=== PATIENT | male | born 1945 | race Caucasian/White ===

== ENCOUNTER 2018-07-21 08:29 | Inpatient (IN) | payer MEDICARE, OTHER ==
[~2018-07-21] VITALS: Ht 188 cm; Wt 115.1 kg
[2018-07-21] MEDS ORDERED: normal saline 1000ML IV soln IVB ONE (09:00)
[2018-07-21 09:08] LABS: BASOPHILS % (AUTO) 0.5 % (0-1); EOSINOPHILS # (AUTO) 0.1 X10'3 (0-0.9); EOSINOPHILS % (AUTO) 0.9 % (0-6); HEMATOCRIT 38.5 % (42.0-52.0); HEMOGLOBIN 13.1 g/dl (14.0-17.9); LYMPHOCYTES # (AUTO) 1.4 X10'3 (1.1-4.8); LYMPHOCYTES % (AUTO) 21.1 % (21-51); MEAN CORPUSCULAR HEMOGLOBIN 31.6 PG (27.0-31.0); MEAN CORPUSCULAR HGB CONC 34.1 % (33.0-36.5); MEAN CORPUSCULAR VOLUME 92.7 FL (78-98); MEAN PLATELET VOLUME 7.3 FL (7.4-10.4); MONOCYTES # (AUTO) 0.5 X10'3 (0-0.9); MONOCYTES % (AUTO) 7.1 % (2-12); NEUTROPHILS # (AUTO) 4.8 X10'3 (1.8-7.7); NEUTROPHILS % (AUTO) 70.4 % (42-75); PLATELET COUNT 226 X10'3 (140-440); RED BLOOD COUNT 4.16 X10'6 (4.70-6.10); RED CELL DISTRIBUTION WIDTH 13.5 % (11.5-14.5); WHITE BLOOD COUNT 6.8 X10'3 (4.5-11.0)
[2018-07-21 09:21] LABS: ALANINE AMINOTRANSFERASE 56 U/L (12-78); ALBUMIN 3.4 G/DL (3.4-5.0); ALBUMIN/GLOBULIN RATIO 1.1 (1.1-1.5); ALKALINE PHOSPHATASE 66 IU/L (46-116); ANION GAP 11 (8-16); ASPARTATE AMINO TRANSFERASE 39 U/L (10-37); BILIRUBIN,TOTAL 0.7 MG/DL (0.1-1.0); BLOOD UREA NITROGEN 16 MG/DL (7-18); BUN/CREATININE RATIO 18.4 (5.4-32.0); CALCIUM 8.2 MG/DL (8.5-10.1); CHLORIDE 108 MMOL/L (99-107); CREATININE 0.87 MG/DL (0.60-1.10); GLUCOSE 107 MG/DL (70-104); SODIUM 142 MMOL/L (135-145); TOTAL CARBON DIOXIDE 22.8 MMOL/L (24-32); TOTAL PROTEIN 6.5 G/DL (6.4-8.2); eGFR 87 ML/MIN
--- NOTE | 2018-07-21 09:26 | NUR ---
Ultrasound at bedside
[2018-07-21 09:36] LABS: LIPASE 8875 U/L (73-393)
--- NOTE | 2018-07-21 09:40 | NUR ---
introduced self to patient
[2018-07-21 09:53] LABS: INR 1.1 INR; PARTIAL THROMBOPLASTIN TIME 26 SECONDS (22-32); PROTHROMBIN TIME 10.7 SECONDS (9.0-12.0)
[2018-07-21] MEDS ORDERED: LORazepam 2 mg/ml vial IV ONE (10:05)
[2018-07-21] MEDS ORDERED: ASPI-1264 PO (10:11)
[2018-07-21] MEDS ORDERED: LISI-600 PO (10:11)
[2018-07-21] MEDS ORDERED: amlodipine PO (10:11)
[2018-07-21] MEDS ORDERED: TETR-47 OP (10:11)
[2018-07-21] MEDS ORDERED: morphine 4 MG/ML inj SYRINge IV PRN (11:05)
[2018-07-21] MEDS ORDERED: potassium Cl 40MEQ/NS 500ml 500 ML IV PRN ×2 (11:05)
[2018-07-21] MEDS ORDERED: potassium Cl 20 mEq SR tablet PO PRN ×2 (11:05)
[2018-07-21] MEDS ORDERED: ondansetron/PF 4mg/2ml inj IV PRN (11:05)
[2018-07-21] MEDS ORDERED: acetaminophen 650mg rectal suppository RC PRN (11:05)
[2018-07-21] MEDS ORDERED: magnesium 4gm in 100ml NS 100 ML IV PRN (11:05)
[2018-07-21] MEDS ORDERED: magnesium Cl slow-release 64mg tablet PO PRN (11:05)
--- NOTE | 2018-07-21 11:40 | NUR ---
PT TO MRI
--- NOTE | 2018-07-21 12:41 | NUR ---
Received report from Ren RN in ED regarding this patient, had opportunity to ask questions and assume care. patient to arrive to floor within the hour.
[2018-07-21 13:00] VITALS: BP 120/72
--- NOTE | 2018-07-21 13:05 | NUR ---
patient arrived to the floor in stable condition. respirations 18, O2 saturation 96 on room air, BP 120/72 and HR 69. Afebrile. Will continue to monitor
[2018-07-21] MEDS: normal saline 1000ml 1,000 ML IV SCH ×2 (14:32→21:18)
[2018-07-21] MEDS: morphine 4 MG/ML inj SYRINge IV PRN ×2 (14:38→21:19)
[2018-07-21 18:00] VITALS: BP 135/79
--- NOTE | 2018-07-21 18:20 | NUR ---
Paged Dr. Pandey after discussing patient's change of code status to DNR, patient states he does not want to be DNR, but would like "some measures." Notified Dr. Pandey of patient's wishes to change code status. awaiting further orders.
--- NOTE | 2018-07-21 18:41 | NUR ---
Patient in room [facility]. I have received report from Juancarlos NIÑO and had the opportunity to ask questions and assume patient care. Was introduced to the pt. no signs of distress. was going to put the DNR band as ordered. However, pt still had questions about his code status and what it entails. educated pt and then Juancarlos RN paged Dr. Pandey. will continue to monitor.
--- NOTE | 2018-07-21 18:41 | NUR ---
Problems reprioritized. Patient report given, questions answered & plan of care reviewed with SALINAS Lazo.
--- NOTE | 2018-07-21 19:06 | NUR ---
Paged Dr. Pandey "[address] 73. pancreatitis, cholelithiasis. wants to address code status and has questions about code status. Surg [id number] Violet NIÑO" Dr. Pandey called and said "she is way to busy right now and we can change the status to full code. we will address his status tomorrow morning and that he seems to be fine right now." Will continue to monitor.
[2018-07-22] VITALS: BP 104/71
[2018-07-22] MEDS: normal saline 1000ml 1,000 ML IV SCH (05:09)
[2018-07-22 05:25] LABS: ALBUMIN 3.1 G/DL (3.4-5.0); ANION GAP 8 (8-16); BLOOD UREA NITROGEN 9 MG/DL (7-18); BUN/CREATININE RATIO 10.7 (5.4-32.0); CHLORIDE 109 MMOL/L (99-107); CREATININE 0.84 MG/DL (0.60-1.10); GLUCOSE 99 MG/DL (70-104); LIPASE 1145 U/L (73-393); MAGNESIUM 1.7 MG/DL (1.5-2.4); POTASSIUM 3.9 MMOL/L (3.5-5.1); SODIUM 143 MMOL/L (135-145); eGFR 90 ML/MIN
[2018-07-22 05:38] LABS: BASOPHILS % (AUTO) 0.3 % (0-1); EOSINOPHILS # (AUTO) 0.1 X10'3 (0-0.9); EOSINOPHILS % (AUTO) 1.6 % (0-6); HEMATOCRIT 36.7 % (42.0-52.0); HEMOGLOBIN 12.1 g/dl (14.0-17.9); LYMPHOCYTES # (AUTO) 1.3 X10'3 (1.1-4.8); LYMPHOCYTES % (AUTO) 22.1 % (21-51); MEAN CORPUSCULAR HEMOGLOBIN 30.6 PG (27.0-31.0); MEAN CORPUSCULAR VOLUME 92.7 FL (78-98); MEAN PLATELET VOLUME 7.1 FL (7.4-10.4); MONOCYTES # (AUTO) 0.4 X10'3 (0-0.9); MONOCYTES % (AUTO) 6.8 % (2-12); NEUTROPHILS # (AUTO) 3.9 X10'3 (1.8-7.7); NEUTROPHILS % (AUTO) 69.2 % (42-75); PLATELET COUNT 235 X10'3 (140-440); RED BLOOD COUNT 3.96 X10'6 (4.70-6.10); RED CELL DISTRIBUTION WIDTH 13.9 % (11.5-14.5); WHITE BLOOD COUNT 5.7 X10'3 (4.5-11.0)
--- NOTE | 2018-07-22 06:40 | NUR ---
Problems reprioritized. Patient report given, questions answered & plan of care reviewed with Juancarlos RN.
--- NOTE | 2018-07-22 06:45 | NUR ---
Patient in room [facility]. I have received report from SALINAS Lazo and had the opportunity to ask questions and assume patient care.
[2018-07-22 08:00] VITALS: BP 122/80
[2018-07-22] MEDS ORDERED: aspirin 325mg tablet PO SCH (08:00)
[2018-07-22] MEDS: K and/or MAG REPLACEMENT MC SCH (08:00)
[2018-07-22] MEDS: lisinopril 20mg tablet PO SCH (08:54)
[2018-07-22 11:00] VITALS: BP 116/73
[2018-07-22] MEDS ORDERED: LORazepam 2 mg/ml vial IV PRN (13:45)
[2018-07-22] MEDS: folic acid 1mg tablet PO SCH (14:32)
[2018-07-22] MEDS ORDERED: naphazoline/pheniramine eye 1 DROP BOTTLE EACHEYE PRN (17:35)
[2018-07-22] MEDS: morphine 4 MG/ML inj SYRINge IV PRN (17:37)
--- NOTE | 2018-07-22 18:23 | NUR ---
Problems reprioritized. Patient report given, questions answered & plan of care reviewed with Carolina Figueroa RN.
--- NOTE | 2018-07-22 18:30 | NUR ---
Patient in room [facility]. I have received report from CHALO NIÑO and had the opportunity to ask questions and assume patient care.
[2018-07-22 20:00] VITALS: BP 132/75
[2018-07-22] MEDS: thiamine 100mg tablet PO SCH (20:02)
[2018-07-23] VITALS (24 sets, daily range): BP systolic 120–169; BP diastolic 55–101
[2018-07-23] MEDS: Potassium Cl inj 20 MEQ in normal saline 1000ml 1,000 ML IV SCH ×2 (05:49→17:01)
--- NOTE | 2018-07-23 06:30 | NUR ---
Problems reprioritized. Patient report given, questions answered & plan of care reviewed with ESSIE NIÑO.
[2018-07-23] MEDS: folic acid 1mg tablet PO SCH (07:13)
[2018-07-23] MEDS: thiamine 100mg tablet PO SCH ×2 (07:13→19:57)
[2018-07-23] MEDS: lisinopril 20mg tablet PO SCH (07:13)
--- NOTE | 2018-07-23 07:18 | NUR ---
Patient in room [facility]. I have received report from Carolina Figueroa RN and had the opportunity to ask questions and assume patient care.
[2018-07-23] MEDS: K and/or MAG REPLACEMENT MC SCH (08:00)
[2018-07-23 08:04] LABS: BASOPHILS % (AUTO) 0.8 % (0-1); EOSINOPHILS # (AUTO) 0.1 X10'3 (0-0.9); EOSINOPHILS % (AUTO) 1.8 % (0-6); HEMATOCRIT 37.7 % (42.0-52.0); HEMOGLOBIN 12.8 g/dl (14.0-17.9); LYMPHOCYTES # (AUTO) 1.5 X10'3 (1.1-4.8); LYMPHOCYTES % (AUTO) 27.6 % (21-51); MEAN CORPUSCULAR HEMOGLOBIN 31.1 PG (27.0-31.0); MEAN CORPUSCULAR HGB CONC 33.9 % (33.0-36.5); MEAN CORPUSCULAR VOLUME 91.8 FL (78-98); MONOCYTES # (AUTO) 0.4 X10'3 (0-0.9); MONOCYTES % (AUTO) 7.4 % (2-12); NEUTROPHILS # (AUTO) 3.3 X10'3 (1.8-7.7); NEUTROPHILS % (AUTO) 62.4 % (42-75); PLATELET COUNT 223 X10'3 (140-440); RED CELL DISTRIBUTION WIDTH 13.9 % (11.5-14.5); WHITE BLOOD COUNT 5.3 X10'3 (4.5-11.0)
[2018-07-23 08:23] LABS: ALANINE AMINOTRANSFERASE 35 U/L (12-78); ALBUMIN 3.1 G/DL (3.4-5.0); ALKALINE PHOSPHATASE 47 IU/L (46-116); ANION GAP 8 (8-16); BILIRUBIN,TOTAL 1.2 MG/DL (0.1-1.0); BLOOD UREA NITROGEN 7 MG/DL (7-18); BUN/CREATININE RATIO 8.3 (5.4-32.0); CALCIUM 8.4 MG/DL (8.5-10.1); CHLORIDE 107 MMOL/L (99-107); CREATININE 0.84 MG/DL (0.60-1.10); GLUCOSE 105 MG/DL (70-104); LIPASE 512 U/L (73-393); MAGNESIUM 1.8 MG/DL (1.5-2.4); POTASSIUM 3.8 MMOL/L (3.5-5.1); SODIUM 141 MMOL/L (135-145); TOTAL PROTEIN 6.1 G/DL (6.4-8.2); eGFR 90 ML/MIN
[2018-07-23 08:32] LABS: ASPARTATE AMINO TRANSFERASE 21 U/L (10-37)
[2018-07-23] MEDS ORDERED: BUPIVAcaine/PF 2.5mg/ml (0.25%) 10ml vial ONE (08:43)
[2018-07-23] MEDS ORDERED: ceFAZolin 1000mg inj ONE (08:43)
--- NOTE | 2018-07-23 08:57 | NUR ---
SALINAS Alcantar called for patient report. Pt left floor in bed with one staff for surgery.
[2018-07-23] MEDS ORDERED: fentaNYL /PF 50mcg/ml 5ml ampule ONE (09:19)
[2018-07-23] MEDS ORDERED: succinylcholine 20mg/ml inj IV ONE (09:38)
[2018-07-23] MEDS ORDERED: rocuronium 10mg/ml inj IV ONE (09:38)
[2018-07-23] MEDS ORDERED: propofol inj 20 ML IV ONE (09:38)
[2018-07-23] MEDS ORDERED: dexamethasone sod phosphate 4mg/ml inj. ONE (09:38)
[2018-07-23] MEDS ORDERED: LIDOcaine 2% (20mg/ml) 5ml vial ONE (09:38)
[2018-07-23] MEDS ORDERED: ceFOXitin 1000 MG inj ONE ×2 (09:52)
--- NOTE | 2018-07-23 10:29 | NUR ---
Received from OR via , accompanied by Anesthesiologist DR AVILA and report given by Anesthesiolgist. PT OPENS EYES TO VOICE, NEEDS REORINETATION, SKIN WARM AND PINK, VSS, ABD WITH 4 LAP SITES BA'S CD, SCDS, LEFT HAND 20G WITH LR 100ML/HR, DR AVILA MEDICATED PT WITH FENTANYL FOR PAIN.
[2018-07-23] MEDS ORDERED: ringers solution, lacted 1,000 ML IV SCH (10:34)
[2018-07-23] MEDS ORDERED: ondansetron/PF 4mg/2ml inj IV PRN (10:35)
[2018-07-23] MEDS ORDERED: HYDROmorphone inj. 0.5 MG/0.5 ML DISP.SYRIN IV PRN ×2 (10:35→14:30)
[2018-07-23] MEDS ORDERED: morphine 2 MG/ML inj. syringe ONE (10:39)
[2018-07-23] MEDS ORDERED: neostigmine methylsulfate 1 MG/ML 10ml vial ONE (10:46)
[2018-07-23] MEDS ORDERED: glycopyrrolate 0.2mg/ml inj ONE (10:46)
[2018-07-23] MEDS ORDERED: ondansetron/PF 4mg/2ml inj ONE (10:46)
[2018-07-23] MEDS: morphine 4 MG/ML inj SYRINge IV PRN ×3 (10:55→11:24)
[2018-07-23] MEDS: HYDROmorphone inj. 0.5 MG/0.5 ML DISP.SYRIN IV PRN ×2 (11:11→11:33)
--- NOTE | 2018-07-23 11:59 | NUR ---
Report called to receiving nurse. Transferred via BED Belongings . Special Issues communicated to receiving nurse ESSIE NIÑO. PT IS AWAKE, ALERT, ABLE TO SIT EOB INDEP'LY, SKIN WARM AND PINK, ABD SOFT, 4 PORT SITES WITH CD BA'S, SCDS, PIV LEFT HAND PATENT, NO TELE ORDERED, PAIN HAS DECREASED TO A 5/10, BP DECREASED AND ABILITY TO [place] O2 ABOVE 93% WITH NC HAS BEEN ACHIEVED, PT HAS MET DISCHARGE CRITERIA. COOK STATION PLACED PATIENT ON 02 IN ROOM, PLUGGED IN SCD'S, AND ANSWERED QUESTIONS FROM RECEIVING NURSE.
[2018-07-23] MEDS: HYDROmorphone 1 mg/ml syringe IV PRN (15:34)
--- NOTE | 2018-07-23 18:07 | NUR ---
Patient in room [facility]. I have received report from Claudette NIÑO and had the opportunity to ask questions and assume patient care. Pt sitting up in bed eating dinner and watching tv on 3L O2. No signs of distress, will continue to monitor.
--- NOTE | 2018-07-23 18:28 | NUR ---
Problems reprioritized. Patient report given, questions answered & plan of care reviewed with Gwendolyn NIÑO.
[2018-07-23] MEDS: docusate sod 100mg capsule PO SCH (19:58)
[2018-07-24] VITALS: BP 139/81
[2018-07-24] MEDS: HYDROmorphone 1 mg/ml syringe IV PRN ×4 (02:12→19:18)
[2018-07-24 06:24] LABS: BASOPHILS % (AUTO) 0.3 % (0-1); EOSINOPHILS # (AUTO) 0.1 X10'3 (0-0.9); EOSINOPHILS % (AUTO) 0.9 % (0-6); HEMATOCRIT 40.9 % (42.0-52.0); HEMOGLOBIN 13.7 g/dl (14.0-17.9); LYMPHOCYTES # (AUTO) 1.1 X10'3 (1.1-4.8); LYMPHOCYTES % (AUTO) 12.4 % (21-51); MEAN CORPUSCULAR HEMOGLOBIN 30.9 PG (27.0-31.0); MEAN CORPUSCULAR HGB CONC 33.5 % (33.0-36.5); MEAN CORPUSCULAR VOLUME 92.2 FL (78-98); MEAN PLATELET VOLUME 7.3 FL (7.4-10.4); MONOCYTES # (AUTO) 0.3 X10'3 (0-0.9); NEUTROPHILS # (AUTO) 7.3 X10'3 (1.8-7.7); NEUTROPHILS % (AUTO) 83.4 % (42-75); PLATELET COUNT 286 X10'3 (140-440); RED BLOOD COUNT 4.43 X10'6 (4.70-6.10); RED CELL DISTRIBUTION WIDTH 13.7 % (11.5-14.5); WHITE BLOOD COUNT 8.7 X10'3 (4.5-11.0)
--- NOTE | 2018-07-24 06:36 | NUR ---
Problems reprioritized. Patient report given, questions answered & plan of care reviewed with Prachi NIÑO. Pt is sitting up in bed watching tv with 3L O2 via NC. Pt has no signs of distress.
[2018-07-24 06:40] LABS: ALANINE AMINOTRANSFERASE 57 U/L (12-78); ALBUMIN 3.5 G/DL (3.4-5.0); ALBUMIN/GLOBULIN RATIO 0.9 (1.1-1.5); ALKALINE PHOSPHATASE 50 IU/L (46-116); ANION GAP 10 (8-16); ASPARTATE AMINO TRANSFERASE 48 U/L (10-37); BILIRUBIN,TOTAL 1.1 MG/DL (0.1-1.0); BLOOD UREA NITROGEN 6 MG/DL (7-18); BUN/CREATININE RATIO 5.7 (5.4-32.0); CALCIUM 8.8 MG/DL (8.5-10.1); CHLORIDE 102 MMOL/L (99-107); CREATININE 1.05 MG/DL (0.60-1.10); GLUCOSE 127 MG/DL (70-104); MAGNESIUM 1.7 MG/DL (1.5-2.4); POTASSIUM 4.1 MMOL/L (3.5-5.1); SODIUM 138 MMOL/L (135-145); TOTAL CARBON DIOXIDE 26.1 MMOL/L (24-32); TOTAL PROTEIN 7.3 G/DL (6.4-8.2); eGFR 70 ML/MIN
[2018-07-24 07:00] VITALS: BP 143/87
[2018-07-24] MEDS: K and/or MAG REPLACEMENT MC SCH (08:00)
[2018-07-24] MEDS: docusate sod 100mg capsule PO SCH ×2 (08:59→19:18)
[2018-07-24] MEDS: thiamine 100mg tablet PO SCH ×2 (08:59→19:18)
[2018-07-24] MEDS: folic acid 1mg tablet PO SCH (09:00)
[2018-07-24] MEDS: lisinopril 20mg tablet PO SCH (09:00)
[2018-07-24] MEDS: enoxaparin 40mg/0.4ml syringe SUBCUT SCH (09:01)
[2018-07-24] MEDS: Potassium Cl inj 20 MEQ in normal saline 1000ml 1,000 ML IV SCH ×2 (10:15→21:47)
[2018-07-24 12:00] VITALS: BP 145/81
--- NOTE | 2018-07-24 18:54 | NUR ---
Patient in room [facility]. I have received report from Prachi NIÑO and had the opportunity to ask questions and assume patient care. Pt was sitting up in bed with tv on going through his bag of belongings. O2 via NC @ 3L, no signs of distress. Will continue to monitor.
[2018-07-24 19:00] VITALS: BP 137/92
[2018-07-25] VITALS: BP 131/79
[2018-07-25] MEDS: HYDROmorphone 1 mg/ml syringe IV PRN (05:02)
[2018-07-25 06:26] LABS: ALBUMIN 2.8 G/DL (3.4-5.0); ANION GAP 8 (8-16); BLOOD UREA NITROGEN 6 MG/DL (7-18); BUN/CREATININE RATIO 6.7 (5.4-32.0); CALCIUM 8.6 MG/DL (8.5-10.1); CHLORIDE 102 MMOL/L (99-107); GLUCOSE 103 MG/DL (70-104); MAGNESIUM 1.7 MG/DL (1.5-2.4); POTASSIUM 3.9 MMOL/L (3.5-5.1); SODIUM 139 MMOL/L (135-145); TOTAL CARBON DIOXIDE 29.1 MMOL/L (24-32); eGFR 83 ML/MIN
--- NOTE | 2018-07-25 06:40 | NUR ---
Problems reprioritized. Patient report given, questions answered & plan of care reviewed with Prachi NIÑO. Pt was awake in bed watching tv with no signs of distress.
[2018-07-25] MEDS: K and/or MAG REPLACEMENT MC SCH (07:38)
[2018-07-25 07:52] VITALS: BP 141/69
[2018-07-25] MEDS: thiamine 100mg tablet PO SCH (09:29)
[2018-07-25] MEDS: lisinopril 20mg tablet PO SCH (09:29)
[2018-07-25] MEDS: docusate sod 100mg capsule PO SCH (09:30)
[2018-07-25] MEDS: folic acid 1mg tablet PO SCH (09:30)
[2018-07-25] MEDS: enoxaparin 40mg/0.4ml syringe SUBCUT SCH (09:31)
[2018-07-25] MEDS ORDERED: FOLI1TAB16 PO (10:37)
[2018-07-25] MEDS ORDERED: HYDR-4353 PO (10:37)
[2018-07-25] MEDS ORDERED: thiamine tablet PO (10:37)
[2018-07-25] MEDS ORDERED: COL100C PO (10:37)
[2018-07-25 11:27] VITALS: BP 142/71
== END 2018-07-25 12:20 | disposition home or self-care (01) | DRG 417 ==
LOC: ER 08:30 → ED HOLD 11:05 → SUR 3N 12:58
PROVIDERS: ADMIT Internal Medicine; ATTEND Internal Medicine
PROC: 0FT44ZZ Resection of Gallbladder, Percutaneous Endoscopic Approach (ICD-10-PCS; principal; 2018-07-23 09:15)
DX: K80.10 Calculus of gallbladder with chronic cholecystitis without obstruction (principal); K85.10 Biliary acute pancreatitis without necrosis or infection; F10.20 Alcohol dependence, uncomplicated; N28.1 Cyst of kidney, acquired; I10 Essential (primary) hypertension; L40.9 Psoriasis, unspecified; Z66 Do not resuscitate; Z79.899 Other long term (current) drug therapy; Z79.82 Long term (current) use of aspirin; Z87.891 Personal history of nicotine dependence; Z71.41 Alcohol abuse counseling and surveillance of alcoholic
CPT/HCPCS: 36415; 74181; 76705; 80048; 80053; 83690; 83735; 85025; 85610; 85730; 87070; 88304; 96361; 96374; 99285; A7000; G0378; J0330; J0690; J0694; J1100; J1170; J1650; J2001; J2060; J2270; J2405; J2704; J2710; J3010; J3480; J3490; J7030; J7120